=== PATIENT | female | born 1935 | race Caucasian/White ===

== ENCOUNTER 2016-09-12 17:52 | Emergency (ER) | payer MEDICARE, OTHER ==
[~2016-09-12] VITALS: Ht 152.4 cm; Wt 69.0 kg
[~2016-09-12 17:52] MED LIST: ASPI325T PO; ATOR40TA49 PO; BIOT5000 PO; CALC500T21 PO; CHOL1CAP6 PO; CLOP75 PO; ISOS30 PO; OMEG1CAP53 PO; VISI0.053 EACH EYE
[2016-09-12 17:55] VITALS: BP 136/72; PULSE 60; RESP 16; TEMP 98.5; O2SAT 97
[2016-09-12] MEDS ORDERED: CALC200S NASAL (18:10)
[2016-09-12] MEDS ORDERED: ATOR20TA15 PO (18:10)
[2016-09-12] MEDS ORDERED: ASPI81TA81 (18:10)
[2016-09-12] MEDS ORDERED: ISOS30TA3 PO (18:10)
[2016-09-12] MEDS ORDERED: NITR0.4S SL (18:10)
[2016-09-12] MEDS ORDERED: CLOP75TA PO (18:10)
--- NOTE | 2016-09-12 18:15 | PD ---
HPI Chief Complaint: Skin Problem Time Seen by Provider: 18:07 Travel History International Travel<30 days: No Contact w/Intl Traveler<30days: No Traveled to known affect area: No History of Present Illness HPI 81-year-old female presents the emergency department with her friend with a history of right-sided scalp pain and rash which she felt was probably first a bug bite until it continues to spread. She is having increasing pain in the forehead and eye. States the right eye was quite swollen and crusty this morning. She denies visual changes. Dr. Ron his her eye doctor. Pain is described as sharp and lancing and intermittent. Rash is spreading. Patient has no difficulty swallowing, no significant fever, or other symptoms. She is allergic to Fosamax and sulfa. PFSH Past Medical History Cardiovascular Problems: No High Cholesterol: Yes Diminished Hearing: No Musculoskeletal: Yes (osteopenia) Neurologic: No Reproductive: No Respiratory: No Immunizations Current: No ?: Not Past Surgical History Cholecystectomy: Yes Genitourinary Surgery: Yes (Laproscopic bladder repair) Social History Alcohol Use: No Tobacco Use: No Substance Use: No Allergies-Medications (Allergen,Severity, Reaction): Coded Allergies: Sulfa (Verified Allergy, Unknown, 09/12/16) Fosamax (Verified Adverse Reaction, Mild, cramps, 09/12/16) Reported Meds & Prescriptions Reported Meds & Active Scripts Active Imdur 30 Mg (Isosorbide Mononitrate) 30 Mg Tabcr 30 Mg PO DAILY@07 Plavix (Clopidogrel Bisulfate) 75 Mg Tab 75 Mg PO DAILY Lipitor 40 Mg Tab (Atorvastatin Calcium) 40 Mg Tab 40 Mg PO HS Aspirin 325 Mg Tab (Aspirin) 325 Mg Tab 81 Mg PO DAILY Reported Biotin 5 000 Tab 2,000 Mcg PO BID Calcium 500+D (Calcium/Vitamin D) 500 + Tab 500 + PO BID Vitamin D-3 (Cholecalciferol) 1,000 Unit Tab 1,000 Unit PO DAILY Eye Drops (Tetrahydrozoline HCl) 0.05 % Cristina 1-2 Drop EACH EYE BID Lovaza (Fish Oil) 1 Gm Cap 2 Gm PO BID Review of Systems Except as stated in HPI: all other systems reviewed are Neg General / Constitutional: No: Fever Eyes: Positive: Redness, Pain, Tearing, No: Visual changes HENT: No: Headaches Cardiovascular: No: Chest Pain or Discomfort Respiratory: No: Shortness of Breath Gastrointestinal: No: Abdominal Pain Genitourinary: No: Dysuria Musculoskeletal: No: Pain Skin: Positive Rash Neurologic: No: Weakness Psychiatric: No: Depression Endocrine: No: Polydipsia Hematologic/Lymphatic: No: Easy Bruising Physical Exam Narrative GENERAL: Patient appears in moderate distress. SKIN: Warm and dry. Patient has obvious vesicular rash in the right anterior parietal scalp from the ear up to midline and onto the right forehead. It extends down along the front of the eye and eyelid. HEAD: Atraumatic. Normocephalic. EYES: Pupils equal and round. No scleral icterus. Patient has moderate conjunctival injection in the right eye with tearing. ENT: No nasal bleeding or discharge. Mucous membranes pink and moist. Pharynx is clear. Airway is patent. NECK: Trachea midline. Supple and nontender. CARDIOVASCULAR: Regular rate and rhythm. RESPIRATORY: No accessory muscle use. Clear to auscultation. Breath sounds equal bilaterally. MUSCULOSKELETAL: Extremities without clubbing, cyanosis, or edema. No obvious deformities. NEUROLOGICAL: Awake and alert. No obvious cranial nerve deficits. Motor grossly within normal limits. Five out of 5 muscle strength in the arms and legs. Normal speech. PSYCHIATRIC: Appropriate mood and affect; insight and judgment normal. Data Data Last Documented VS Vital Signs Date Time Temp Pulse Resp B/P Pulse Ox O2 Delivery O2 Flow Rate FiO2 09/12/16 17:55 98.5 60 16 136/72 97 MDM Medical Decision Making Medical Screen Exam Complete: Yes Emergency Medical Condition: Yes Differential Diagnosis Shingles of the scalp. Ocular shingles. Rash. Narrative Course Patient is medically stable at time of exam. Call was placed to Dr. Mcadams, the substitute nurse formstone fitter. Patient is started on valacyclovir thousand milligrams 3 times a day. Patient is given tramadol 50 mg when necessary every 6 hours for pain. Patient is started on gabapentin 100 mg twice a day. #20. Patient is to follow with Dr. Mcadams first thing tomorrow morning. Patient is in to follow-up with her primary care physician later this week to ensure improvement. Patient can return to emergency Department with worsening symptoms if necessary. Diagnosis Primary Impression: Shingles rash Qualified Code: B02.30 - Herpes zoster with ophthalmic complication, unspecified herpes zoster eye disease Additional Impression: HZV (herpes zoster virus) infection of eyelid Referrals: Ligia Mcadams (Antoine) 1 day Patient Instructions: General Instructions, Shingles (ED) Additional Instructions: Patient is started on valacyclovir thousand milligrams 3 times a day. Patient is given tramadol 50 mg when necessary every 6 hours for pain. Patient is started on gabapentin 100 mg twice a day. #20. Patient is to follow with Dr. Mcadams first thing tomorrow morning. Patient is in to follow-up with her primary care physician later this week to ensure improvement. Patient can return to emergency Department with worsening symptoms if necessary. Med/Other Pt SpecificInfo: Prescription(s) given Disposition: 01 DISCHARGE HOME Condition: Stable Kailash Hall September 12, 2016 18:15
[2016-09-12] MEDS ORDERED: GABA100C4 PO (18:16)
[2016-09-12] MEDS ORDERED: VALT1TAB PO (18:16)
[2016-09-12] MEDS ORDERED: TRAM50TA PO (18:16)
== END 2016-09-12 18:34 | disposition home or self-care (01) ==
LOC: PHEFT 17:52
DX: B02.30 Zoster ocular disease, unspecified (principal)
CPT/HCPCS: 99282

== ENCOUNTER 2017-02-12 18:30 | Emergency (ER) | payer MEDICARE, OTHER ==
[~2017-02-12] VITALS: Ht 152.4 cm; Wt 69.1 kg
[~2017-02-12 18:30] MED LIST changes: -ASPI325T PO; +ASPI81TA81; +ATOR20TA15 PO; -ATOR40TA49 PO; -BIOT5000 PO; +CALC200S NASAL; -CALC500T21 PO; -CHOL1CAP6 PO; -CLOP75 PO; +CLOP75TA PO; +GABA100C4 PO; -ISOS30 PO; +ISOS30TA3 PO; +NITR0.4S SL; -OMEG1CAP53 PO; +TRAM50TA PO; +VALT1TAB PO; -VISI0.053 EACH EYE
[2017-02-12 18:42] VITALS: BP 126/62; PULSE 50; RESP 16; TEMP 97.9; O2SAT 96
[2017-02-12] MEDS ORDERED: PROPARACAINE HCL 0.5% OPHT SOLN 15 ML BTL LEFT EYE ONE (19:00)
[2017-02-12] MEDS ORDERED: FLUORESCEIN SOD 1 MG STRIP LEFT EYE ONE (19:00)
--- NOTE | 2017-02-12 19:56 | PD ---
HPI Chief Complaint: Eye Problems/Injury Time Seen by Provider: 18:49 Travel History International Travel<30 days: No Contact w/Intl Traveler<30days: No Traveled to known affect area: No History of Present Illness HPI Patient is a 81 year old female who comes in complaining of blurry vision of her left eye. She had cataract surgery performed on this eye with a lens implanted on February 06. She says she went to her follow-up appointment the following day and everything was fine. She says the blurred vision started yesterday. She denies any pain to the eye. She denies any injury to the eye. She just was told by her doctor that if she had any issues that she needs to get checked out. PFSH Past Medical History Cardiovascular Problems: No High Cholesterol: Yes Diminished Hearing: No Gastrointestinal Disorders: No Glaucoma: Yes Musculoskeletal: Yes (osteopenia) Neurologic: No Reproductive: No Respiratory: No Immunizations Current: No Myocardial Infarction: Yes ?: Not Past Surgical History Cholecystectomy: Yes Genitourinary Surgery: Yes (Laproscopic bladder repair) Other Surgery: Yes Social History Alcohol Use: No Tobacco Use: No Substance Use: No Allergies-Medications (Allergen,Severity, Reaction): Coded Allergies: Sulfa (Sulfonamide Antibiotics) (Unverified Allergy, Unknown, 02/12/17) alendronate sodium (Unverified Adverse Reaction, Mild, cramps, 02/12/17) Reported Meds & Prescriptions Reported Meds & Active Scripts Active Gabapentin 100 Mg Cap 100 Mg PO BID Tramadol (Tramadol HCl) 50 Mg Tab 50 Mg PO Q6H PRN Valtrex (Valacyclovir HCl) 1 Gm Tab 1,000 Mg PO TID 7 Days Reported Nitrostat SL (Nitroglycerin) 0.4 Mg Subl 0.4 Mg SL DIRECTED PRN 1 tablet under the tongue as needed for chest pain. Repeat every 5 minutes for a total of 3 DOSES or call 911 if NO relief. Isosorbide Mononitrate ER (Isosorbide Mononitrate) 30 Mg Shanae 30 Mg PO DAILY Clopidogrel (Clopidogrel Bisulfate) 75 Mg Tab 75 Mg PO DAILY Calcitonin (Ericson) Nasal Cool (Calcitonin Ericson) 200 Unit/Act Cool 1 Cool NASAL DAILY Alternate nostrils daily. Atorvastatin (Atorvastatin Calcium) 20 Mg Tab 20 Mg PO HS Aspir-81 (Aspirin) 81 Mg Tabdr Review of Systems General / Constitutional: No: Fever, Chills Eyes: Positive: Blurred Vision, No: Pain HENT: No: Headaches Cardiovascular: No: Chest Pain or Discomfort Respiratory: No: Shortness of Breath Gastrointestinal: No: Nausea, Vomiting Musculoskeletal: No: Myalgias Skin: No Rash, No Change in Pigmentation Neurologic: No: Weakness, Dizziness Physical Exam Narrative GENERAL: Awake and alert, in no acute distress. SKIN: Focused skin assessment warm/dry. HEAD: Atraumatic. Normocephalic. EYES: Pupils equal and round and reactive. No scleral icterus. No injection or drainage. Extraocular movements intact. ENT: Mucous membranes pink and moist. CARDIOVASCULAR: Regular rate and rhythm. No murmur appreciated. RESPIRATORY: No accessory muscle use. Clear to auscultation. Breath sounds equal bilaterally. MUSCULOSKELETAL: No obvious deformities. No clubbing. No cyanosis. No edema. NEUROLOGICAL: Awake and alert. No obvious cranial nerve deficits. Motor grossly within normal limits. Normal speech. Data Data Last Documented VS Vital Signs Date Time Temp Pulse Resp B/P (MAP) Pulse Ox O2 Delivery O2 Flow Rate FiO2 02/12/17 18:42 97.9 50 16 126/62 (83) 96 Orders Orders Proparacaine 0.5% Opth Soln (Alcaine 0.5 (02/12/17 19:00) Fluorescein Strip ([id number] A.T.) (02/12/17 19:00) [facility] Medical Decision Making Medical Screen Exam Complete: Yes Emergency Medical Condition: Yes Medical Record Reviewed: Yes Differential Diagnosis Corneal abrasion versus surgical complication versus conjunctivitis Narrative Course Patient is an 81-year-old female who comes in complaining of blurred vision to her left eye. She is status post cataract surgery. Visual acuity shows 20/25 vision in the left eye and 20/15 vision in the right eye. There is a small abrasion on the left cornea seen in the 6 o'clock position, seen on Wood's lamp exam. This is likely secondary to her surgery. I spoke with Dr. Mcadams of ophthalmology. She suggests that she follow up with her doctor tomorrow and continue her antibiotic drops as prescribed. She agrees that the corneal abrasion is likely secondary to the surgery. Patient advised follow-up with her instrument repairer. Advised to return any time for any worsening symptoms. Diagnosis Primary Impression: Blurred vision, left eye Patient Instructions: Blurred Vision (ED), General Instructions Additional Instructions: Continue to use your medications as prescribed. Follow-up with the instrument repairer tomorrow. Return as needed for any worsening symptoms. Disposition: 01 DISCHARGE HOME Condition: Stable Jennifer Campo MD Feb 12, 2017 19:56
== END 2017-02-12 20:37 | disposition home or self-care (01) ==
LOC: PHED 18:30
DX: H53.8 Other visual disturbances (principal); H40.9 Unspecified glaucoma; E78.00 Pure hypercholesterolemia, unspecified; I25.2 Old myocardial infarction; M85.80 Other specified disorders of bone density and structure, unspecified site; Z98.42 Cataract extraction status, left eye; Z96.1 Presence of intraocular lens
CPT/HCPCS: 99283